=== PATIENT | female | born 1940 | race Caucasian/White ===

== ENCOUNTER 2022-09-16 09:00 | Outpatient (RCR) | payer MEDICARE, SELFPAY ==
[2022-08-14 09:08] VITALS: BP 166/73; PULSE 84
== END 2022-09-25 09:09 | disposition home or self-care (01) ==
LOC: HO.PT 09:00
PROVIDERS: Visit Provider Orthopaedic Surgery
DX: S82.891D Other fracture of right lower leg, subsequent encounter for closed fracture with routine healing (principal)
CPT/HCPCS: 97110; 97116; 97162; 97530